=== PATIENT | female | born 1995 | race Caucasian/White ===

== ENCOUNTER 2017-02-22 17:23 | Inpatient (IN) | payer SELFPAY ==
[2017-02-22] MEDS ORDERED: NS 0.9% 1000 ML*IV.FLUID IV ONE (18:28)
[2017-02-22] MEDS ORDERED: diPHENhydraMINE IV* 50 MG/ML 1 ml VIAL (BENADRYL) IV ONE (18:28)
[2017-02-22 18:40] LABS: Hematocrit 27 % (35-47); Hemoglobin 8.4 g/dl (12.0-16.0); Mean Corpuscular HGB Conc 31 g/dl (31-36); Mean Corpuscular Hemoglobin 21 pg (27-31); Mean Corpuscular Volume 67 fL (80-97); Mean Platelet Volume 8 um3 (7.4-10.4); Red Cell Distribution Width 20 % (10.5-15); White Blood Count 16.5 10^3/ul (3.5-10.8)
[2017-02-22 18:41] LABS: Add Diff/Slide Review? Slide Review Added; Comments Flag Yes
[2017-02-22 18:52] LABS: ALT 7 U/L (7-52); AST 10 U/L (13-39); Albumin 3.6 g/dL (3.2-5.2); Alkaline Phosphatase 68 U/L (34-104); Anion Gap 7 mmol/L (2-11); BUN/Creatinine Ratio 20.3 (8-20); Blood Urea Nitrogen 15 mg/dL (6-24); C Reactive Protein 64.52 mg/L (< 5.00); CO2 Carbon Dioxide 27 mmol/L (22-32); Calcium 8.9 mg/dL (8.6-10.3); Chloride 102 mmol/L (101-111); Creatine Kinase 31 U/L (10-223); EGFR African American 125.1 (>60); EGFR Non-African American 97.3 (>60); Globulin 3.4 g/dL (2-4); Glucose 117 mg/dL (70-100); Potassium 3.7 mmol/L (3.5-5.0); Sodium 136 mmol/L (133-145)
[2017-02-22] MEDS ORDERED: Vancomycin(*) 1,000 MG VIAL IVPB SCH (19:00)
[2017-02-22] MEDS ORDERED: Vancomycin(*) 750 MG in NS 0.9% 250 ML* 250 ML IVPB ONE (19:00)
[2017-02-22 19:04] LABS: Add Path Review? YES; Hypochromasia 1+; Microcytosis 2+
[2017-02-22 19:30] LABS: Erythrocyte Sed Rate 53 mm/Hr (0-14)
--- NOTE | 2017-02-22 19:38 | RAD ---
INDICATION: Redness and erythema at right wrist ascending the right arm COMPARISON: None. TECHNIQUE: Single AP portable view of the chest was obtained. FINDINGS: Image quality is compromised due to the relative inferiority of a portable chest x-ray. The heart and mediastinum exhibit normal size and contour. The lungs are grossly clear. There is no evidence of a large pleural effusion. Visualized bones are normal for the patient's age. IMPRESSION: No radiographic evidence for acute cardiopulmonary abnormality on this portable chest x-ray.
--- NOTE | 2017-02-22 19:40 | RAD ---
INDICATION: Pain and soft tissue swelling at the right wrist COMPARISON: None TECHNIQUE: Real time ultrasound images of the right lateral wrist were acquired with boss scale and Doppler color flow imaging. FINDINGS: There is a complex anechoic subcutaneous fluid collection measuring 3.9 x 2.8 x 2.5 cm. There is overlying edema of the subcutaneous fat. IMPRESSION: Sonographic findings are consistent with subcutaneous abscess in the correct clinical setting.
[2017-02-22] MEDS ORDERED: NS 0.9% 1000 ML* 1,000 ML IV ONE (20:16)
[2017-02-22] MEDS ORDERED: oxyCODONE/Acetamin 5/325 MG* TAB PO ONE (20:17)
[2017-02-22 23:15] LABS: Urine Bacteria 3+ (Absent); Urine Bilirubin Negative (Negative); Urine Glucose Negative (Negative); Urine Nitrite Negative (Negative)
[2017-02-22 23:24] LABS: Benzodiazepine Urine Screen None Detected (None Detect)
[2017-02-22] MEDS ORDERED: Albuterol 2.5 MG/3 ML NEB.SOL* (0.083%) INH PRN (23:40)
[2017-02-22] MEDS ORDERED: Ondansetron INJ* 2 MG/ML VIAL IV PRN (23:41)
[2017-02-22] MEDS ORDERED: Morphine INJ* 4 MG/ML 1 ML SYRINGE IV ONE (23:44)
[2017-02-22] MEDS ORDERED: Vancomycin per Pharmacy* NOTE FOLLOW UP SCH (23:45)
[2017-02-22] MEDS ORDERED: Ondansetron INJ* 2 MG/ML VIAL IV ONE (23:48)
--- NOTE | 2017-02-22 23:52 | HP ---
H&P (Free Text) History and Physical: PCP: MELANY Sunshine Date/Time of Evaluation: 02/22/2017 2300 CC: R forearm infection HPI: Ms Astudillo is a 21YO female HX heroin abuse adamantly denying current use presenting reporting being bitten by a spider at 0300 02/21/2017 and in the interval experiencing the formation of a large painful red lump at the site with erythema streaking up the arm to the shoulder. She reports F/C & nausea. She spends the majority of the time diverting the conversation to other complains such as her belief that she had a severe kidney infection a year ago, but was "told she was delusional" by the ED and now thinks she has permanent kidney damage. She is lying on the ED gurney in no objective distress. PMedHx anxiety PTSD neurocardiac syncope IV drug abuse Ambulatory Orders Adderall 1 tab PO DAILY 05/17/13 Implanon 1 dose SUBCUT SEE INSTRUCTIONS 05/17/13 Allergies Coconut Fatty Acids Allergy (Severe, Verified 02/22/17 17:53) Anaphylatic Shock pt reports last time ate coconut, had anaphylactic reaction Azithromycin Allergy (Intermediate, Verified 02/22/17 23:37) Hives/Diff.Breathing/Itching Ciprofloxacin Allergy (Intermediate, Verified 02/22/17 23:37) Hives/Diff.Breathing/Itching Penicillins [PCN] Allergy (Intermediate, Verified 02/22/17 23:37) Hives/Diff.Breathing/Itching Adhesive Tape Allergy (Mild, Verified 02/22/17 23:37) Rash Cephalexin [From Keflex] Allergy (Mild, Verified 02/22/17 23:37) Hives Lactose Allergy (Mild, Verified 02/22/17 23:37) Hives and gi distress Ketorolac Tromethamine [From Toradol] Adverse Reaction (Mild, Verified 02/22/17 23:37) Itching PSurgHx L knee arthroscopy appendectomy D&C SocHx: <1/4PPD attempting cessation, no alcohol, former IV drug abuser claims abstinence x >1year; lives with her uncle; unemployed; full code status FamHx: Mother: drug abuse; Father: estranged; otherwise positive for colon CA, pancreatic CA, & brain CA ROS: as above, otherwise reviewed and all were negative Constitutional: NAD, normally developed, thin white female vitals: Vital Signs Temp 37.8 C 02/22/17 17:28 Pulse 119 02/22/17 22:00 Resp 18 02/22/17 22:43 BP 119/97 02/22/17 22:00 Pulse Ox 100 02/22/17 22:00 Intake & Output 02/22/17 02/22/17 02/23/17 11:59 23:59 11:59 Intake Total 1999 Balance 1999 Weight 44.452 kg Intake: IV Fluids 1999 HEENM: atraumatic; sclera/conjunctiva: non-icteric/clear; hearing: clinically intact; oropharynx: clear, mucosa moist Neck: soft tissue: non-tender; thyroid: normal Pulmonary: clear to auscultation bilaterally, good aeration, no accessory muscle use CV: RR/RR, normal S1S2, no carotid bruit, no jugular venous distention, 2+ B DP/ PT, no edema Abdominal: soft, non-distended, non-tender, no rebound/guarding/rigidity, normoactive bowel sounds, no hepatosplenomegaly or masses, no costovertebral angle tenderness Musculoskeletal: general: grossly intact; gait: stable Integumental: R lateral wrist with ~4cm firm tender flocculent nodule with erythema, warmth, and induration; It is highly unlikely this area has formed in <24 hours as she claims. There is erythema extending to the shoulder. Otherwise there appears to be multiple track grace on BLE. Psychiatric orientation: AA&O to PPS affect: calm mood: cooperative eye contact: fair content: unreliable, possibly delusional responses: timely insight: poor Testing: Lab Results 02/22/17 02/22/17 02/22/17 Range/Units 18:22 18:22 18:22 WBC 16.5 H (3.5-10.8) 10^3/ul RBC 4.00 (4.0-5.4) 10^6/ul Hgb 8.4 L (12.0-16.0) g/dl Hct 27 L (35-47) % MCV 67 L (80-97) fL MCH 21 L (27-31) pg MCHC 31 (31-36) g/dl RDW 20 H (10.5-15) % Plt Count 413 (150-450) 10^3/ul MPV 8 (7.4-10.4) um3 Neut % (Auto) 79.9 (38-83) % Lymph % (Auto) 10.1 L (25-47) % [place] % (Auto) 4.7 (1-9) % Eos % (Auto) 4.6 (0-6) % Baso % (Auto) 0.7 (0-2) % Absolute Neuts (auto) 13.2 H (1.5-7.7) 10^3/ul Absolute Lymphs (auto) 1.7 (1.0-4.8) 10^3/ul Absolute Monos (auto) 0.8 (0-0.8) 10^3/ul Absolute Eos (auto) 0.8 H (0-0.6) 10^3/ul Absolute Basos (auto) 0.1 (0-0.2) 10^3/ul Absolute Nucleated RBC 0 10^3/ul Nucleated RBC % 0 Normal RBC Morphology Not Reportable Hypochromasia 1+ Microcytosis 2+ ESR 53 H (0-14) mm/Hr Hem Pathologist Commnt Pending INR (Anticoag Therapy) 1.05 (0.89-1.11) APTT 31.4 (26.0-36.3) seconds Sodium 136 (133-145) mmol/L Potassium 3.7 (3.5-5.0) mmol/L Chloride 102 (101-111) mmol/L Carbon Dioxide 27 (22-32) mmol/L Anion Gap 7 (2-11) mmol/L BUN 15 (6-24) mg/dL Creatinine 0.74 (0.51-0.95) mg/dL Est GFR ( Amer) 125.1 (>60) Est GFR (Non-Af Amer) 97.3 (>60) BUN/Creatinine Ratio 20.3 H (8-20) Glucose 117 H (70-100) mg/dL Lactic Acid (0.5-2.0) mmol/L Calcium 8.9 (8.6-10.3) mg/dL Total Bilirubin 0.30 (0.2-1.0) mg/dL AST 10 L (13-39) U/L ALT 7 (7-52) U/L Alkaline Phosphatase 68 (34-104) U/L Total Creatine Kinase 31 (10-223) U/L Troponin I 0.00 (<0.04) ng/mL C-Reactive Protein 64.52 H (< 5.00) mg/L Total Protein 7.0 (6.4-8.9) g/dL Albumin 3.6 (3.2-5.2) g/dL Globulin 3.4 (2-4) g/dL Albumin/Globulin Ratio 1.1 (1-3) Beta HCG, Quant < 0.60 mIU/mL Urine Color Urine Appearance Urine pH (5-9) Ur Specific [place] (1.010-1.030) Urine Protein (Negative) Urine Ketones (Negative) Urine Blood (Negative) Urine Nitrate (Negative) Urine Bilirubin (Negative) Urine Urobilinogen (Negative) Ur Leukocyte Esterase (Negative) Urine WBC (Auto) (Absent) Urine RBC (Auto) (Absent) Ur Squamous Epith Cells (Absent) Urine Bacteria (Absent) Urine Glucose (Negative) Urine Opiates Screen (None Detect) Ur Barbiturates Screen (None Detect) Ur Phencyclidine Scrn (None Detect) Ur Amphetamines Screen (None Detect) U Benzodiazepines Scrn (None Detect) Urine Cocaine Screen (None Detect) U Cannabinoids Screen (None Detect) 02/22/17 02/22/17 02/22/17 Range/Units 18:22 22:40 22:40 WBC (3.5-10.8) 10^3/ul RBC (4.0-5.4) 10^6/ul Hgb (12.0-16.0) g/dl Hct (35-47) % MCV (80-97) fL MCH (27-31) pg MCHC (31-36) g/dl RDW (10.5-15) % Plt Count (150-450) 10^3/ul MPV (7.4-10.4) um3 Neut % (Auto) (38-83) % Lymph % (Auto) (25-47) % [place] % (Auto) (1-9) % Eos % (Auto) (0-6) % Baso % (Auto) (0-2) % Absolute Neuts (auto) (1.5-7.7) 10^3/ul Absolute Lymphs (auto) (1.0-4.8) 10^3/ul Absolute Monos (auto) (0-0.8) 10^3/ul Absolute Eos (auto) (0-0.6) 10^3/ul Absolute Basos (auto) (0-0.2) 10^3/ul Absolute Nucleated RBC 10^3/ul Nucleated RBC % Normal RBC Morphology Hypochromasia Microcytosis ESR (0-14) mm/Hr Hem Pathologist Commnt INR (Anticoag Therapy) (0.89-1.11) APTT (26.0-36.3) seconds Sodium (133-145) mmol/L Potassium (3.5-5.0) mmol/L Chloride (101-111) mmol/L Carbon Dioxide (22-32) mmol/L Anion Gap (2-11) mmol/L BUN (6-24) mg/dL Creatinine (0.51-0.95) mg/dL Est GFR ( Amer) (>60) Est GFR (Non-Af Amer) (>60) BUN/Creatinine Ratio (8-20) Glucose (70-100) mg/dL Lactic Acid 1.5 (0.5-2.0) mmol/L Calcium (8.6-10.3) mg/dL Total Bilirubin (0.2-1.0) mg/dL AST (13-39) U/L ALT (7-52) U/L Alkaline Phosphatase (34-104) U/L Total Creatine Kinase (10-223) U/L Troponin I (<0.04) ng/mL C-Reactive Protein (< 5.00) mg/L Total Protein (6.4-8.9) g/dL Albumin (3.2-5.2) g/dL Globulin (2-4) g/dL Albumin/Globulin Ratio (1-3) Beta HCG, Quant mIU/mL Urine Color [place] Urine Appearance Turbid Urine pH 6.0 (5-9) Ur Specific [place] 1.015 (1.010-1.030) Urine Protein 1+(30 mg/dl) H (Negative) Urine Ketones Negative (Negative) Urine Blood 1+ H (Negative) Urine Nitrate Negative (Negative) Urine Bilirubin Negative (Negative) Urine Urobilinogen Negative (Negative) Ur Leukocyte Esterase 2+ H (Negative) Urine WBC (Auto) 3+(>20/hpf) H (Absent) Urine RBC (Auto) Absent (Absent) Ur Squamous Epith Cells Present H (Absent) Urine Bacteria 3+ H (Absent) Urine Glucose Negative (Negative) Urine Opiates Screen Presumptive positive H (None Detect) Ur Barbiturates Screen None detected (None Detect) Ur Phencyclidine Scrn None detected (None Detect) Ur Amphetamines Screen Presumptive positive H (None Detect) U Benzodiazepines Scrn None detected (None Detect) Urine Cocaine Screen None detected (None Detect) U Cannabinoids Screen None detected (None Detect) 02/22/17 Range/Units 23:00 WBC (3.5-10.8) 10^3/ul RBC (4.0-5.4) 10^6/ul Hgb (12.0-16.0) g/dl Hct (35-47) % MCV (80-97) fL MCH (27-31) pg MCHC (31-36) g/dl RDW (10.5-15) % Plt Count (150-450) 10^3/ul MPV (7.4-10.4) um3 Neut % (Auto) (38-83) % Lymph % (Auto) (25-47) % [place] % (Auto) (1-9) % Eos % (Auto) (0-6) % Baso % (Auto) (0-2) % Absolute Neuts (auto) (1.5-7.7) 10^3/ul Absolute Lymphs (auto) (1.0-4.8) 10^3/ul Absolute Monos (auto) (0-0.8) 10^3/ul Absolute Eos (auto) (0-0.6) 10^3/ul Absolute Basos (auto) (0-0.2) 10^3/ul Absolute Nucleated RBC 10^3/ul Nucleated RBC % Normal RBC Morphology Hypochromasia Microcytosis ESR (0-14) mm/Hr Hem Pathologist Commnt INR (Anticoag Therapy) (0.89-1.11) APTT (26.0-36.3) seconds Sodium (133-145) mmol/L Potassium (3.5-5.0) mmol/L Chloride (101-111) mmol/L Carbon Dioxide (22-32) mmol/L Anion Gap (2-11) mmol/L BUN (6-24) mg/dL Creatinine (0.51-0.95) mg/dL Est GFR ( Amer) (>60) Est GFR (Non-Af Amer) (>60) BUN/Creatinine Ratio (8-20) Glucose (70-100) mg/dL Lactic Acid 1.1 (0.5-2.0) mmol/L Calcium (8.6-10.3) mg/dL Total Bilirubin (0.2-1.0) mg/dL AST (13-39) U/L ALT (7-52) U/L Alkaline Phosphatase (34-104) U/L Total Creatine Kinase (10-223) U/L Troponin I (<0.04) ng/mL C-Reactive Protein (< 5.00) mg/L Total Protein (6.4-8.9) g/dL Albumin (3.2-5.2) g/dL Globulin (2-4) g/dL Albumin/Globulin Ratio (1-3) Beta HCG, Quant mIU/mL Urine Color Urine Appearance Urine pH (5-9) Ur Specific [place] (1.010-1.030) Urine Protein (Negative) Urine Ketones (Negative) Urine Blood (Negative) Urine Nitrate (Negative) Urine Bilirubin (Negative) Urine Urobilinogen (Negative) Ur Leukocyte Esterase (Negative) Urine WBC (Auto) (Absent) Urine RBC (Auto) (Absent) Ur Squamous Epith Cells (Absent) Urine Bacteria (Absent) Urine Glucose (Negative) Urine Opiates Screen (None Detect) Ur Barbiturates Screen (None Detect) Ur Phencyclidine Scrn (None Detect) Ur Amphetamines Screen (None Detect) U Benzodiazepines Scrn (None Detect) Urine Cocaine Screen (None Detect) U Cannabinoids Screen (None Detect) ECG, personally reviewed: sinus tachycardia rate 100, no ischemia CXR, personally reviewed: IMPRESSION: No radiographic evidence for acute cardiopulmonary abnormality on this portable chest x-ray. US soft tissue R wrist: IMPRESSION: Sonographic findings are consistent with subcutaneous abscess in the correct clinical setting. Impression: 21F presenting abscess of RUE highly suspicious for IV drug use DIAGNOSIS & PLAN Primary R wrist abscess/cellulitis : IV vancomycin : IVFs : blood CX : non-narcotic pain control, patient aware and agrees : supportive care : consider ID consult in AM Secondary anxiety : review meds once reconciled PTSD : review meds once reconciled Admission Rational: CDU observation for syncope DVTp: KINDRA Code Status: full
[2017-02-23] MEDS ORDERED: Bupivacaine 0.5%* 50 ML VIAL INJ ONE (00:20)
[2017-02-23] MEDS ORDERED: Mouth Piece, Nicotine* 1 EACH CARTRIDGE INH PRN (00:34)
[2017-02-23] MEDS ORDERED: Nicotine Inhaler* 10 MG AMP INH PRN (00:34)
[2017-02-23] MEDS ORDERED: diPHENhydraMINE IV* 50 MG/ML 1 ml VIAL (BENADRYL) ONE (01:24)
[2017-02-23] MEDS ORDERED: diPHENhydraMINE IV* 50 MG/ML 1 ml VIAL (BENADRYL) SLOW PUSH ONE (01:26)
[2017-02-23] MEDS: Acetaminophen TAB* 325 MG PO PRN ×3 (03:13→19:41)
[2017-02-23] MEDS: Vancomycin(*) 750 MG in NS 0.9% 250 ML* 250 ML IVPB SCH ×3 (03:23→19:42)
--- NOTE | 2017-02-23 04:23 | ED ---
Edwin Enrique Thomas, scribed for Bethany Romo MD on 02/22/17 at 1822 . Skin Complaint <Gilma Araujo - Last Filed: 02/23/17 02:10> - HPI Summary HPI Summary: The pt is a 21 y/o F presenting to the ED c/o an erythematous swelling to her right wrist that she first noticed 24 hours ago although the swelling has worsened significantly in the last 6 hours. The patient claims that this is a spider bite. She has a Hx of IV drug use, although she claims that the last time she used IV drugs was a year ago. The pain associated with this swelling radiates up her right arm. The pt rates the pain 10/10. The patient has treated the swelling with Benadryl and Lidocaine LINK CUTTER (per EMR). She does not have a Hx of MRSA. Pt additionally c/o a rash on her back and a chronic VELÁZQUEZ. Her temperature in the ED is 100.0. Pt denies CP, SOB, and N/V/D. She takes Adderall 15mg TID. She reports that she is on Percocet PRN. She denies any other medication use. Her last meal was a piece of pizza at 15:15. 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 PSHx: appendectomy. SHx: smoking, no alcohol use , and IV benzos (she reports her last use is a year ago). FHx: kidney disease. She has as child who was born in the last couple years and, per patient, she was unaware of the for the entire . Patients medication reviewed this visit. Her PCP is Dr. Slade. She is accompanied by her fiance and a friend. - History of Current Complaint Hx Obtained From: Patient, Family/Texture Artist - fiance and friend are present Hx Last Menstrual Period: 11/15/12 Onset/Duration: Started Hours Ago - onset 24 hours ago, Still Present, Worse Since - last 6 hours Timing: Constant Current Severity: Severe Pain Intensity: 10 Pain Scale Used: 0-10 Numeric Skin Location: Other: - Left wrist Character: Swelling, Pain, Redness Aggravating Symptom(s): Nothing Alleviating Symptom(s): Nothing Associated Signs & Symptoms: Fever, Rash - on back Related History: Other: - Hx of IV drug use <Bethany Romo - Last Filed: 02/23/17 04:24> - History of Current Complaint Chief Complaint: EDGeneral Stated Complaint: SPIDER BITE - Allergy/Home Medications Allergies/Adverse Reactions: Allergies Allergy/AdvReac Type Severity Reaction Status Date / Time C[place] Fatty Acids Allergy Severe Anaphylatic Verified 02/22/17 17:53 Shock Azithromycin Allergy Intermediate Hives/Diff. Verified 02/22/17 23:37 Breathing/I tching Ciprofloxacin Allergy Intermediate Hives/Diff. Verified 02/22/17 23:37 Breathing/I tching Penicillins [PCN] Allergy Intermediate Hives/Diff. Verified 02/22/17 23:37 Breathing/I tching Adhesive Tape Allergy Mild Rash Verified 02/22/17 23:37 Cephalexin [From Keflex] Allergy Mild Hives Verified 02/22/17 23:37 Lactose Allergy Mild Hives Verified 02/22/17 23:37 Ketorolac Tromethamine AdvReac Mild Itching Verified 02/22/17 23:37 [From Toradol] Home Medications: Home Medications oxyCODONE/Acetamin 10/325(NF) [Percocet 10/325 (NF)] 10 mg PO Q6HR PRN 02/23/17 [History Confirmed 02/23/17] PMH/Surg Hx/FS Hx/Imm Hx Previously Healthy: No Endocrine/Hematology History: Denies: Hx Bone Marrow Disease, Hx Diabetes, Hx Sickle Cell Disease, Hx Anemia Cardiovascular History: Reports: Other Cardiovascular Problems/Disorders - "Hyponeurogenic cardiac syncope" congenital Denies: Hx Congestive Heart Failure, Hx Hypertension, Hx Pacemaker/ICD Sensory History: Denies: Hx Contacts or Glasses, Hx Hearing Aid Opthamlomology History: Denies: Hx Contacts or Glasses Neurological History: Reports: Other Neuro Impairments/Disorders - PTSD Denies: Hx Headaches, Hx Migraine, Hx Nerve Disease, Hx Seizures Psychiatric History: Reports: Hx Anxiety - X 5 years, Hx Post Traumatic Stress Disorder - X 5 years Denies: Hx Depression, Hx Panic Disorder - Surgical History Surgery Procedure, Year, and Place: left knee surg. appendectomy Hx Anesthesia Reactions: No - Immunization History Date of Tetanus Vaccine: UTD Date of Influenza Vaccine: 2012 Infectious Disease History: No Infectious Disease History: Denies: Traveled Outside the [place] in Last 30 Days - Family History Known Family History: Positive: Other - POS: kidney disease - Social History Alcohol Use: None Hx Substance Use: Yes Substance Use Comment - Amount & Last Used: Patient declines to answer Smoking Status (MU): Current Some Day Smoker <Bethany Romo - Last Filed: 02/23/17 04:24> Review of Systems Positive: Fever - temperature 100 in the ED Negative: Chest Pain Negative: Shortness Of Breath Negative: Vomiting, Diarrhea, Nausea Positive: Rash - on her back, Other - POS: R wrist pain, swelling and erythema to right wrist Positive: Headache - chronic All Other Systems Reviewed And Are Negative: Yes <Bethany Romo Stella - Last Filed: 02/23/17 04:24> Physical Exam Vital Signs On Initial Exam: Initial Vitals Temp Pulse Resp BP Pulse Ox 100.0 F 125 18 121/83 96 02/22/17 17:28 02/22/17 17:28 02/22/17 17:28 02/22/17 17:28 02/22/17 17:28 <Gilma Araujo - Last Filed: 02/23/17 02:10> Triage Information Reviewed: Yes Vital Signs On Initial Exam: Initial Vitals Temp Pulse Resp BP Pulse Ox 100.0 F 125 18 121/83 96 02/22/17 17:28 02/22/17 17:28 02/22/17 17:28 02/22/17 17:28 02/22/17 17:28 Vital Signs Reviewed: Yes Appearance: Positive: Well-Appearing, Well-Nourished, Pain Distress Skin: Positive: Warm, Skin Color Reflects Adequate Perfusion, Other - There are multiple erythematous lesoins that are scabbed and crusted in the scalp, face, and extremities. There is a 6cm x 6cm shiny red induration over the radial artery. Surrounding redness is 16cm. There is diffuse hives and erythema. Head/Face: Positive: Normal Head/Face Inspection Eyes: Positive: Conjunctiva Clear ENT: Positive: Normal ENT inspection, Pharynx normal Neck: Positive: Supple Respiratory/Lung Sounds: Positive: Clear to Auscultation, Breath Sounds Present , Other - No respiratory distress Cardiovascular: Positive: Pulses are Symmetrical in both Upper and Lower Extremities, Other - Brisk cap refill. She is tachycardic. Regular rhythm.. Negative: Murmur Abdomen Description: Positive: Nontender, Soft Bowel Sounds: Positive: Present Musculoskeletal: Positive: Strength/ROM Intact Neurological: Positive: Sensory/Motor Intact, Alert, Oriented to Person Place, Time, Facial Symmetry, Speech Normal Psychiatric: Positive: Normal - Trevin Coma Scale Coma Scale Total: 15 <Bethany Romo - Last Filed: 02/23/17 04:24> Procedures - Incision and Drainage Site: Rt distal dorsal wrist - cleaned w/ betadine Anesthesia: Local - marcaine 0.5% Instrument(s): Scalpel - #11 - 5+ cc purulent sanginous d/c, tiny clots present - not thoroughly evacuated d/t pt's intolerance Packing: Gauze - cavity flushed with sterile saline and packed with 1/2" sterile gauze - performed by Gilma Araujo PA-C <Gilma Araujo - Last Filed: 02/23/17 02:10> Diagnostics - Vital Signs Vital Signs Temp Pulse Resp BP Pulse Ox 02/22/17 22:43 18 02/22/17 22:00 119 119/97 100 02/22/17 21:30 115 113/74 100 02/22/17 21:00 117 125/85 100 02/22/17 20:30 114 114/74 100 02/22/17 20:00 109 112/70 100 02/22/17 19:30 103 117/77 99 02/22/17 19:00 109 118/78 100 02/22/17 18:30 121 115/83 100 02/22/17 18:28 98 02/22/17 18:00 117 121/81 100 02/22/17 17:54 114 16 109/80 02/22/17 17:53 118 100 02/22/17 17:51 109/80 02/22/17 17:28 100.0 F 125 18 121/83 96 - Laboratory Lab Results: Lab Results 02/22/17 02/22/17 02/22/17 Range/Units 18:22 18:22 18:22 WBC 16.5 H (3.5-10.8) 10^3/ul RBC 4.00 (4.0-5.4) 10^6/ul Hgb 8.4 L (12.0-16.0) g/dl Hct 27 L (35-47) % MCV 67 L (80-97) fL MCH 21 L (27-31) pg MCHC 31 (31-36) g/dl RDW 20 H (10.5-15) % Plt Count 413 (150-450) 10^3/ul MPV 8 (7.4-10.4) um3 Neut % (Auto) 79.9 (38-83) % Lymph % (Auto) 10.1 L (25-47) % Chase % (Auto) 4.7 (1-9) % Eos % (Auto) 4.6 (0-6) % Baso % (Auto) 0.7 (0-2) % Absolute Neuts (auto) 13.2 H (1.5-7.7) 10^3/ul Absolute Lymphs (auto) 1.7 (1.0-4.8) 10^3/ul Absolute Monos (auto) 0.8 (0-0.8) 10^3/ul Absolute Eos (auto) 0.8 H (0-0.6) 10^3/ul Absolute Basos (auto) 0.1 (0-0.2) 10^3/ul Absolute Nucleated RBC 0 10^3/ul Nucleated RBC % 0 Normal RBC Morphology Not Reportable Hypochromasia 1+ Microcytosis 2+ ESR 53 H (0-14) mm/Hr Hem Pathologist Commnt Pending INR (Anticoag Therapy) 1.05 (0.89-1.11) APTT 31.4 (26.0-36.3) seconds Sodium 136 (133-145) mmol/L Potassium 3.7 (3.5-5.0) mmol/L Chloride 102 (101-111) mmol/L Carbon Dioxide 27 (22-32) mmol/L Anion Gap 7 (2-11) mmol/L BUN 15 (6-24) mg/dL Creatinine 0.74 (0.51-0.95) mg/dL Est GFR ( Amer) 125.1 (>60) Est GFR (Non-Af Amer) 97.3 (>60) BUN/Creatinine Ratio 20.3 H (8-20) Glucose 117 H (70-100) mg/dL Lactic Acid (0.5-2.0) mmol/L Calcium 8.9 (8.6-10.3) mg/dL Total Bilirubin 0.30 (0.2-1.0) mg/dL AST 10 L (13-39) U/L ALT 7 (7-52) U/L Alkaline Phosphatase 68 (34-104) U/L Total Creatine Kinase 31 (10-223) U/L Troponin I 0.00 (<0.04) ng/mL C-Reactive Protein 64.52 H (< 5.00) mg/L Total Protein 7.0 (6.4-8.9) g/dL Albumin 3.6 (3.2-5.2) g/dL Globulin 3.4 (2-4) g/dL Albumin/Globulin Ratio 1.1 (1-3) Beta HCG, Quant < 0.60 mIU/mL Urine Color Urine Appearance Urine pH (5-9) Ur Specific [place] (1.010-1.030) Urine Protein (Negative) Urine Ketones (Negative) Urine Blood (Negative) Urine Nitrate (Negative) Urine Bilirubin (Negative) Urine Urobilinogen (Negative) Ur Leukocyte Esterase (Negative) Urine WBC (Auto) (Absent) Urine RBC (Auto) (Absent) Ur Squamous Epith Cells (Absent) Urine Bacteria (Absent) Urine Glucose (Negative) Urine Opiates Screen (None Detect) Ur Barbiturates Screen (None Detect) Ur Phencyclidine Scrn (None Detect) Ur Amphetamines Screen (None Detect) U Benzodiazepines Scrn (None Detect) Urine Cocaine Screen (None Detect) U Cannabinoids Screen (None Detect) 02/22/17 02/22/17 02/22/17 Range/Units 18:22 22:40 22:40 WBC (3.5-10.8) 10^3/ul RBC (4.0-5.4) 10^6/ul Hgb (12.0-16.0) g/dl Hct (35-47) % MCV (80-97) fL MCH (27-31) pg MCHC (31-36) g/dl RDW (10.5-15) % Plt Count (150-450) 10^3/ul MPV (7.4-10.4) um3 Neut % (Auto) (38-83) % Lymph % (Auto) (25-47) % Chase % (Auto) (1-9) % Eos % (Auto) (0-6) % Baso % (Auto) (0-2) % Absolute Neuts (auto) (1.5-7.7) 10^3/ul Absolute Lymphs (auto) (1.0-4.8) 10^3/ul Absolute Monos (auto) (0-0.8) 10^3/ul Absolute Eos (auto) (0-0.6) 10^3/ul Absolute Basos (auto) (0-0.2) 10^3/ul Absolute Nucleated RBC 10^3/ul Nucleated RBC % Normal RBC Morphology Hypochromasia Microcytosis ESR (0-14) mm/Hr Hem Pathologist Commnt INR (Anticoag Therapy) (0.89-1.11) APTT (26.0-36.3) seconds Sodium (133-145) mmol/L Potassium (3.5-5.0) mmol/L Chloride (101-111) mmol/L Carbon Dioxide (22-32) mmol/L Anion Gap (2-11) mmol/L BUN (6-24) mg/dL Creatinine (0.51-0.95) mg/dL Est GFR ( Amer) (>60) Est GFR (Non-Af Amer) (>60) BUN/Creatinine Ratio (8-20) Glucose (70-100) mg/dL Lactic Acid 1.5 (0.5-2.0) mmol/L Calcium (8.6-10.3) mg/dL Total Bilirubin (0.2-1.0) mg/dL AST (13-39) U/L ALT (7-52) U/L Alkaline Phosphatase (34-104) U/L Total Creatine Kinase (10-223) U/L Troponin I (<0.04) ng/mL C-Reactive Protein (< 5.00) mg/L Total Protein (6.4-8.9) g/dL Albumin (3.2-5.2) g/dL Globulin (2-4) g/dL Albumin/Globulin Ratio (1-3) Beta HCG, Quant mIU/mL Urine Color [place] Urine Appearance Turbid Urine pH 6.0 (5-9) Ur Specific [place] 1.015 (1.010-1.030) Urine Protein 1+(30 mg/dl) H (Negative) Urine Ketones Negative (Negative) Urine Blood 1+ H (Negative) Urine Nitrate Negative (Negative) Urine Bilirubin Negative (Negative) Urine Urobilinogen Negative (Negative) Ur Leukocyte Esterase 2+ H (Negative) Urine WBC (Auto) 3+(>20/hpf) H (Absent) Urine RBC (Auto) Absent (Absent) Ur Squamous Epith Cells Present H (Absent) Urine Bacteria 3+ H (Absent) Urine Glucose Negative (Negative) Urine Opiates Screen Presumptive positive H (None Detect) Ur Barbiturates Screen None detected (None Detect) Ur Phencyclidine Scrn None detected (None Detect) Ur Amphetamines Screen Presumptive positive H (None Detect) U Benzodiazepines Scrn None detected (None Detect) Urine Cocaine Screen None detected (None Detect) U Cannabinoids Screen None detected (None Detect) 02/22/17 Range/Units 23:00 WBC (3.5-10.8) 10^3/ul RBC (4.0-5.4) 10^6/ul Hgb (12.0-16.0) g/dl Hct (35-47) % MCV (80-97) fL MCH (27-31) pg MCHC (31-36) g/dl RDW (10.5-15) % Plt Count (150-450) 10^3/ul MPV (7.4-10.4) um3 Neut % (Auto) (38-83) % Lymph % (Auto) (25-47) % Chase % (Auto) (1-9) % Eos % (Auto) (0-6) % Baso % (Auto) (0-2) % Absolute Neuts (auto) (1.5-7.7) 10^3/ul Absolute Lymphs (auto) (1.0-4.8) 10^3/ul Absolute Monos (auto) (0-0.8) 10^3/ul Absolute Eos (auto) (0-0.6) 10^3/ul Absolute Basos (auto) (0-0.2) 10^3/ul Absolute Nucleated RBC 10^3/ul Nucleated RBC % Normal RBC Morphology Hypochromasia Microcytosis ESR (0-14) mm/Hr Hem Pathologist Commnt INR (Anticoag Therapy) (0.89-1.11) APTT (26.0-36.3) seconds Sodium (133-145) mmol/L Potassium (3.5-5.0) mmol/L Chloride (101-111) mmol/L Carbon Dioxide (22-32) mmol/L Anion Gap (2-11) mmol/L BUN (6-24) mg/dL Creatinine (0.51-0.95) mg/dL Est GFR ( Amer) (>60) Est GFR (Non-Af Amer) (>60) BUN/Creatinine Ratio (8-20) Glucose (70-100) mg/dL Lactic Acid 1.1 (0.5-2.0) mmol/L Calcium (8.6-10.3) mg/dL Total Bilirubin (0.2-1.0) mg/dL AST (13-39) U/L ALT (7-52) U/L Alkaline Phosphatase (34-104) U/L Total Creatine Kinase (10-223) U/L Troponin I (<0.04) ng/mL C-Reactive Protein (< 5.00) mg/L Total Protein (6.4-8.9) g/dL Albumin (3.2-5.2) g/dL Globulin (2-4) g/dL Albumin/Globulin Ratio (1-3) Beta HCG, Quant mIU/mL Urine Color Urine Appearance Urine pH (5-9) Ur Specific [place] (1.010-1.030) Urine Protein (Negative) Urine Ketones (Negative) Urine Blood (Negative) Urine Nitrate (Negative) Urine Bilirubin (Negative) Urine Urobilinogen (Negative) Ur Leukocyte Esterase (Negative) Urine WBC (Auto) (Absent) Urine RBC (Auto) (Absent) Ur Squamous Epith Cells (Absent) Urine Bacteria (Absent) Urine Glucose (Negative) Urine Opiates Screen (None Detect) Ur Barbiturates Screen (None Detect) Ur Phencyclidine Scrn (None Detect) Ur Amphetamines Screen (None Detect) U Benzodiazepines Scrn (None Detect) Urine Cocaine Screen (None Detect) U Cannabinoids Screen (None Detect) Result Diagrams: 02/22/17 18:22 02/22/17 18:22 Lab Statement: Any lab studies that have been ordered have been reviewed, and results considered in the medical decision making process. <Gilma Araujo - Last Filed: 02/23/17 02:10> - Vital Signs Vital Signs Temp Pulse Resp BP Pulse Ox 02/22/17 17:54 114 16 109/80 02/22/17 17:53 118 100 02/22/17 17:51 109/80 02/22/17 17:28 100.0 F 125 18 121/83 96 - Laboratory Result Diagrams: 02/22/17 18:22 02/22/17 18:22 Lab Statement: Any lab studies that have been ordered have been reviewed, and results considered in the medical decision making process. - Radiology CXR Xray Interpretation: No Acute Changes - CXR No radiographic evidence for acute cardiopulmonary abnormality on this portable chest x-ray. ED Physician has read this report and agrees. Radiology Interpretation Completed By: Radiologist - EKG 19:20 Cardiac Rate: NL - Sinus tachycardia at 100 BPM. Prolonged IV conduction time ( unspecific 124) Nml AV/IV/QTc/[place]. - Additional Comments Diagnostic Additional Comments: US Soft Tissue. Interpreted by radiologist. Impression: sonographic findings are consistent with subcutaneous abscess in the correct clinical setting. ED Physician has read this report and agrees. <Bethany Romo - Last Filed: 02/23/17 04:24> Re-Evaluation - Re-Evaluation First Eval Re-Evaluation Time: 20:00 Change: Improved Comment: The rash has improved. The patient is still tachycardic, so we will give her more IV fluids. <Bethany Romo - Last Filed: 02/23/17 04:24> Course/Dx - Course Assessment/Plan: The pt is a 21 y/o F presenting to the ED c/o an erythematous swelling to her right wrist that she first noticed She has a Hx of IV drug use, although she claims that the last time she used IV drugs was a year ago. In the ED course the patient was given IV fluids, morphine, Zofran, vancomycin, Percocet, and Benadryl. Bloodwork shows WBC 16.5, Hgb 8.4, Hct 27, AST 10, and CRP 64.52. UA shows 1+ protein, 1+ blood, 2+ leukocyte esterase, 3+ WBC, 2+ bacteria. Urine toxicology is presumptive positive for opiates and amphetamines. CXR is negative. EKG shows ST with prolonged IV conduction time. US Soft tissue abscess that (per Dr. Wiggins) would warrant surgery consult. However, I consulted with Dr. Seaman, surgery, who recommended that an I&D be done in the ED. I also consulted at 23:[address] Walsh, button broacher, who admits the patient to [facility]. - Physician Notifications Discussed Care Of Patient With: Sarkis Wiggins Time Discussed With Above Provider: 19:50 Instructed by Provider To: Other - I personally consultd with Dr. Wiggins, radiology. He reports that the patient's abscess will require a surgical consult. I also consulted with Dr. Walsh, button broacher, who admits the patient to [facility] at 23:30. <Bethany Romo - Last Filed: 02/23/17 04:24> Discharge <Gilma Araujo - Last Filed: 02/23/17 02:10> - Discharge Plan Discharge Disposition Comment: By Dr. Walsh at 23:30 <Bethany Romo - Last Filed: 02/23/17 04:24> - Discharge Plan Condition: Fair Disposition: ADMITTED TO [facility] The documentation as recorded by the Edwin kohler Thomas accurately reflects the service I personally performed and the decisions made by me, Bethany Romo MD.
[2017-02-23] MEDS: Omeprazole CAP* 20 MG PO SCH (05:06)
[2017-02-23 05:59] LABS: Hematocrit 24 % (35-47); Hemoglobin 7.4 g/dl (12.0-16.0); Mean Corpuscular HGB Conc 32 g/dl (31-36); Mean Corpuscular Hemoglobin 22 pg (27-31); Mean Corpuscular Volume 68 fL (80-97); Mean Platelet Volume 8 um3 (7.4-10.4); Red Blood Count 3.44 10^6/ul (4.0-5.4); Red Cell Distribution Width 21 % (10.5-15); White Blood Count 12.6 10^3/ul (3.5-10.8)
[2017-02-23 06:03] LABS: Comments Flag Yes
--- NOTE | 2017-02-23 09:05 | PN ---
Subjective Date of Service: 02/23/17 Interval History: This is a 21 yo female with h/o IVDA who presented with an abscess and cellulitis over her R wrist after a "spider bite" 02/21. She underwent I&D in the ER and started on vancomycin. She has been afebrile overnight. Patient reports improvement in her erythema which had streaked to her shoulder at time of admission. Pain is tolerable denies any additional complaints. She was questioned about signs of bleeding due to noted anemia, she denies any and states that she has not had a menstrual period since delivering her child in August. She states she has undergone US of the pelvis for w/u of amenorrhea which she was told was normal. She denies additional signs of bleeding. Objective Active Medications: Acetaminophen (Tylenol Tab*) 650 mg PO Q6H PRN PRN Reason: FEVER/PAIN Last Admin: 02/23/17 03:13 Dose: 650 mg Albuterol (Ventolin 2.5 Mg/3 Ml Neb.Eunice*) 2.5 mg INH Q2H PRN PRN Reason: SOB/WHEEZING Device (Nicotine Mouth Piece*) 1 each INH .USE WITH NICOTROL PRN PRN Reason: CRAVING Docusate Sodium (Colace Cap*) 200 mg PO BID [facility] Vancomycin HCl 750 mg/ Sodium (Chloride) 250 mls @ 166.667 mls/hr IVPB Q8H [facility] Last Admin: 02/23/17 03:23 Dose: 166.667 mls/hr Melatonin (Melatonin (Nf)) 3 mg PO BEDTIME PRN; Protocol PRN Reason: Sleep Nicotine (Nicotine Inhaler*) 10 mg INH Q2H PRN PRN Reason: CRAVING Omeprazole (Prilosec Cap*) 20 mg PO DAILY@0600 [facility] Last Admin: 02/23/17 05:06 Dose: Not Given Ondansetron HCl (Zofran Inj*) 4 mg IV Q6H PRN PRN Reason: NAUSEA Pharmacy Consult (Vancomycin Per Pharmacy*) 1 note FOLLOW UP .VANC PER PHARMACY [facility] Pharmacy Profile Note (Vancomycin Trough Check) 1 note FOLLOW UP 1929 ONE Stop: 02/23/17 19:31 Tramadol HCl (Ultram*) 50 mg PO Q6H PRN PRN Reason: PAIN Vital Signs: Temp Pulse Resp BP Pulse Ox 98.2 F 63 19 91/54 99 02/23/17 07:16 02/23/17 07:16 02/23/17 07:16 02/23/17 07:16 02/23/17 07:16 Oxygen Devices in Use Now: None Appearance: Mildly ill appearing young female in NAD Respiratory: Symmetrical Chest Expansion and Respiratory Effort, Clear to Auscultation Cardiovascular: NL Sounds; No Murmurs; No JVD, RRR Extremities: - - RUE swelling at the hand and forearm, R wrist wrapped in an BOB wrap. Skin: No Rash or Ulcers Neurological: Alert and Oriented x 3 Result Diagrams: 02/23/17 05:34 02/22/17 18:22 Additional Lab and Data: . Assess/Plan/Problems-Billing Assessment: This is a 21 yo female with a h/o IVDA who presented with c/o R wrist abscess and cellulitis. Admitted for IV abx treatment. - Patient Problems (1) Abscess or cellulitis of wrist Comment: With associated lymphangitis of RUE Noted improvement with IV Vanco Blood cultures pending, concern for endocarditis due h/o IVDA, but no murmur on exam (2) IV drug abuse Comment: Patient reports that she has been clean x 1yr Opiates and amphetamines on tox screen with Percocet and Adderall on home medication list (3) Anemia Comment: Marked microcytic anemia Pending iron, B12 and folate studies, but assume it is an iron deficiency anemia She denies signs of bleeding including any menstrual bleeding BHCG neg (4) Anxiety Comment: Controlled at this time (5) Full code status (6) DVT prophylaxis Comment: Low risk SCDs Status and Disposition: Observation. Waiting for blood culture results which should be reported this evening, if neg dc in am.
[2017-02-23 09:28] LABS: Total Iron Binding Capacity 259 mcg/dL (250-450); Transferrin 185 mg/dL (203-362)
[2017-02-23 09:36] LABS: Iron < 15 ug/dL (50-212)
[2017-02-23 09:49] LABS: Ferritin 21.2 ng/mL (11-307)
[2017-02-23 09:53] LABS: Folate 5.06 ng/mL (>3.99)
[2017-02-23 09:54] LABS: Vitamin B12 344 pg/mL (180-914)
[2017-02-23] MEDS: Docusate CAP* 100 MG PO SCH ×2 (10:02→19:41)
[2017-02-23] MEDS: traMADol TAB* 50 MG PO PRN ×2 (13:17→19:42)
[2017-02-23] MEDS ORDERED: Vancomycin Trough Check NOTE FOLLOW UP ONE (19:30)
[2017-02-24] MEDS: Vancomycin(*) 1,000 MG in NS 0.9% 250 ML* 250 ML IVPB SCH ×2 (02:01→09:44)
[2017-02-24 03:25] VITALS: BP 101/59
[2017-02-24] MEDS: Omeprazole CAP* 20 MG PO SCH (06:15)
[2017-02-24] MEDS: traMADol TAB* 50 MG PO PRN (06:35)
[2017-02-24] MEDS: Acetaminophen TAB* 325 MG PO PRN (06:37)
[2017-02-24] MEDS: Docusate CAP* 100 MG PO SCH (09:58)
[2017-02-24 10:00] LABS: BUN/Creatinine Ratio 25.7 (8-20); Calcium 9.4 mg/dL (8.6-10.3); EGFR African American 133.4 (>60); EGFR Non-African American 103.7 (>60); Potassium 4.2 mmol/L (3.5-5.0)
[2017-02-24 10:18] LABS: Hematocrit 29 % (35-47); Hemoglobin 9.1 g/dl (12.0-16.0); Mean Corpuscular HGB Conc 31 g/dl (31-36); Mean Corpuscular Hemoglobin 21 pg (27-31); Mean Platelet Volume 8 um3 (7.4-10.4); Red Blood Count 4.27 10^6/ul (4.0-5.4); Red Cell Distribution Width 21 % (10.5-15); White Blood Count 9.1 10^3/ul (3.5-10.8)
[2017-02-24 10:21] LABS: Comments Flag Yes
[2017-02-24 10:22] LABS: Mean Corpuscular Volume 68 fL (80-97)
[2017-02-24] MEDS ORDERED: oxyCODONE/Acetamin 5/325 MG* TAB PO PRN (10:30)
--- NOTE | 2017-02-25 02:49 | DS ---
CC: MELANY Fields * DISCHARGE SUMMARY: DATE OF ADMISSION: 02/22/17 DATE OF DISCHARGE: 02/24/17 PRIMARY CARE PROVIDER: MELANY Car DISCHARGING PROVIDER: MELANY Santiago SUPERVISING PHYSICIAN: Felipe Angeles MD * (DICTATED BY MELANY SANTIAGO) PRIMARY DISCHARGE DIAGNOSES: 1. Abscess with associated cellulitis and lymphangitis of the right upper extremity without signs of severe sepsis or septicemia. 2. History of IV drug abuse, reportedly in remission. 3. Microcytic anemia, which appears to be iron deficiency related. SECONDARY DISCHARGE DIAGNOSIS: Anxiety. DISCHARGE MEDICATIONS: 1. Adderall 1 tablet p.o. daily. 2. Bactrim DS 1 tablet p.o. twice daily x7 days. 3. Oxycodone/acetaminophen 10/325 one tablet p.o. q.6 hours as needed for pain. Medication changes: 1. Bactrim x7 days. HOSPITAL IMAGIN. Chest x-ray shows no acute process. 2. Soft tissue ultrasound of the right wrist demonstrates findings consistent with the subcutaneous abscess. HOSPITAL COURSE: This is a 21-year-old female with history of anxiety and IV drug abuse, reportedly clean for the last year, who presented with concerns for "spider bite," which she first noted 02/21/17. The area of concern was located on her right wrist and the area of redness rapidly spread up her arm and across her chest. She was evaluated in the emergency department, which demonstrated a moderate leukocytosis with white blood cell count of 16,500. She was also noted to have a microcytic anemia, normal platelet counts at that time. Comprehensive metabolic panel is unremarkable. Moderate CRP elevation at 64 and beta-hCG was noted to be negative. Lactic acid was also normal. Urine toxicology screen was positive for both opiate and amphetamines, which are on her home medications in the form of Percocet and Adderall. The patient had what appeared to be a large abscess over her right wrist, which was successfully incised and drained in the emergency department and packed with iodoform gauze. Due to the extent of the erythema and concern for lymphangitis with streaking up her arm, she was referred for inpatient admission. Given her history of IV drug abuse, there is high suspicion for endocarditis, but blood cultures were negative, and she did not have a murmur on exam or other stigmata associated with endocarditis. The patient was empirically treated treated with IV vancomycin with good response. She remained afebrile throughout her hospital stay and white blood cell count returned to normal prior to discharge. The patient was noted to be anemic. Hemoglobin varied between 7 and 9 g/dL, but she was markedly microcytic. Iron, folate, and B12 studies were completed, which demonstrated a severe iron deficiency. The patient was questioned about her menstrual patterns, which she states that she has delivered a baby in August of 2016 and has not had a menstrual period since. She does not breast feed. Her beta-hCG was negative here. She states that she has undergone workup for amenorrhea with her PCP. No other signs of bleeding. Unsure of what her baseline hemoglobin is. DISPOSITION AND FOLLOWUP PLAN: The patient is being discharged to home. She still has some packing in place in the abscess pocket over her right wrist. She is instructed to remove the remainder of the packing in 24 to 48 hours. She is given a prescription for 7 days worth of Bactrim and follow up recommended with primary care provider by the end of the week. The patient received wound care directions. Regarding her anemia, suggested she started on iron supplementation and consider outpatient Hematology consult. MELANY SANTIAGO [id number]/[facility] #: [id number] MTDJairo
[2017-02-25] MEDS ORDERED: Vancomycin Trough Check NOTE FOLLOW UP ONE (09:30)
== END 2017-02-24 13:30 | disposition home or self-care (01) | DRG 603 ==
LOC: ED 17:23 → MED 23:26 → OBSVTOIN 02-23 09:00
PROVIDERS: ADMIT Hospitalist; ATTEND Hospitalist
PROC: 0H9BXZZ Drainage of Right Upper Arm Skin, External Approach (ICD-10-PCS; principal; 2017-02-23)
DX: L02.413 Cutaneous abscess of right upper limb (principal); D50.9 Iron deficiency anemia, unspecified; F11.21 Opioid dependence, in remission; F19.21 Other psychoactive substance dependence, in remission; F17.210 Nicotine dependence, cigarettes, uncomplicated; F43.10 Post-traumatic stress disorder, unspecified; L03.113 Cellulitis of right upper limb; Z88.0 Allergy status to penicillin; Z88.3 Allergy status to other anti-infective agents; Z91.040 Latex allergy status
CPT/HCPCS: 36415; 71010; 80048; 80053; 80202; 80307; 81003; 81015; 82550; 82607; 82728; 82746; 83540; 83550; 83605; 84484; 84702; 85025; 85060; 85610; 85652; 85730; 86140; 87040; 87086; 93005; 99406; A9270-GY; J1200; J2270; J2405; J3370

== ENCOUNTER 2017-12-03 07:01 | Inpatient (IN) | payer OTHER, MEDICAID ==
[2017-12-03] MEDS ORDERED: Magnesium Hydroxide LIQ* 30 ML UDC PO PRN (12:40)
[2017-12-03] MEDS ORDERED: Senna TAB PO PRN (12:40)
[2017-12-03] MEDS ORDERED: Cyclobenzaprine TAB* 10 MG PO PRN (12:47)
[2017-12-03] MEDS: oxyCODONE TAB* 5 MG TAB PO PRN (13:18)
[2017-12-03] MEDS: Acetaminophen TAB* 325 MG PO PRN (14:49)
[2017-12-03] MEDS: Enoxaparin(*) 40 MG/0.4 ML SYR SUBCUT SCH (18:43)
[2017-12-03] MEDS: Amoxicillin/Clavulanate TAB* 875 MG PO SCH (21:21)
[2017-12-03] MEDS: oxyCODONE SR TAB(*) 10 MG TAB.SR PO SCH (21:21)
[2017-12-03] MEDS: Docusate CAP* 100 MG PO SCH (21:32)
[2017-12-03] MEDS: Bacitracin OINTMENT* 0.5% 0.5 oz TUBE TOPICAL SCH (21:58)
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
[2017-12-04] MEDS: oxyCODONE TAB* 5 MG TAB PO PRN ×3 (02:06→19:40)
[2017-12-04 06:51] LABS: Hematocrit 30 % (35-47); Hemoglobin 10.3 g/dl (12.0-16.0); Mean Corpuscular HGB Conc 34 g/dl (31-36); Mean Corpuscular Hemoglobin 28 pg (27-31); Mean Corpuscular Volume 80 fL (80-97); Mean Platelet Volume 7.5 um3 (7.4-10.4); Platelet Count 659 10^3/ul (150-450); Red Blood Count 3.76 10^6/ul (4.00-5.40); Red Cell Distribution Width 19 % (10.5-15); White Blood Count 21.7 10^3/ul (3.5-10.8)
[2017-12-04] MEDS ORDERED: Collagenase 250 MG/GM OINT* 30 GM TOPICAL SCH (09:00)
[2017-12-04] MEDS: Docusate CAP* 100 MG PO SCH ×2 (09:58→21:52)
[2017-12-04] MEDS: Amoxicillin/Clavulanate TAB* 875 MG PO SCH ×2 (09:58→21:53)
[2017-12-04] MEDS: oxyCODONE SR TAB(*) 10 MG TAB.SR PO SCH ×2 (09:58→21:52)
[2017-12-04 10:10] LABS: ABS Basophils 0.1 10^3/ul (0-0.2); ABS Eosinophils 0.9 10^3/ul (0-0.6); ABS Lymphocytes 1.5 10^3/ul (1.0-4.8); ABS Monocytes 1.6 10^3/ul (0-0.8); ABS Neutrophils 17.5 10^3/ul (1.5-7.7); ABS Nucleated RBC 0 10^3/ul
[2017-12-04 10:11] LABS: Eosinophil % 4.3 % (0-6); Lymphocyte % 7.1 % (25-47); Nucleated Red Blood Cells % 0
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
[2017-12-04] MEDS: Acetaminophen TAB* 325 MG PO PRN (15:34)
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
[2017-12-04] MEDS: Enoxaparin(*) 40 MG/0.4 ML SYR SUBCUT SCH (17:40)
[2017-12-04 17:47] LABS: Urine Appearance Cloudy; Urine Blood Negative (Negative); Urine Color Yellow; Urine Ketones Negative (Negative); Urine Protein Negative (Negative); Urine Specific Gravity 1.027 (1.010-1.030); Urine Urobilinogen Negative (Negative)
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
[2017-12-05 06:35] LABS: ABS Basophils 0.1 10^3/ul (0-0.2); ABS Eosinophils 0.8 10^3/ul (0-0.6); ABS Lymphocytes 1.1 10^3/ul (1.0-4.8); ABS Monocytes 1.3 10^3/ul (0-0.8); ABS Nucleated RBC 0 10^3/ul; Eosinophil % 4.4 % (0-6); Hematocrit 30 % (35-47); Hemoglobin 10.4 g/dl (12.0-16.0); Lymphocyte % 5.9 % (25-47); Mean Corpuscular HGB Conc 34 g/dl (31-36); Mean Corpuscular Hemoglobin 27 pg (27-31); Mean Corpuscular Volume 80 fL (80-97); Mean Platelet Volume 7.5 um3 (7.4-10.4); Nucleated Red Blood Cells % 0; Platelet Count 695 10^3/ul (150-450); Red Blood Count 3.79 10^6/ul (4.00-5.40); Red Cell Distribution Width 19 % (10.5-15); White Blood Count 19.4 10^3/ul (3.5-10.8)
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
[2017-12-05 06:52] LABS: EGFR Non-African American 151.6 (>60)
[2017-12-05] MEDS: Bacitracin OINTMENT* 0.5% 0.5 oz TUBE TOPICAL SCH ×2 (08:53→09:12)
[2017-12-05] MEDS: oxyCODONE SR TAB(*) 10 MG TAB.SR PO SCH ×2 (08:53→20:53)
[2017-12-05] MEDS: Amoxicillin/Clavulanate TAB* 875 MG PO SCH ×2 (08:54→20:53)
[2017-12-05] MEDS: Docusate CAP* 100 MG PO SCH ×3 (08:54→20:53)
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
[2017-12-05] MEDS: oxyCODONE TAB* 5 MG TAB PO PRN ×3 (11:29→20:52)
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
[2017-12-05] MEDS: Acetaminophen TAB* 325 MG PO PRN (16:52)
[2017-12-05] MEDS: Enoxaparin(*) 40 MG/0.4 ML SYR SUBCUT SCH (16:53)
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
[2017-12-06] MEDS: oxyCODONE TAB* 5 MG TAB PO PRN ×2 (05:51→15:18)
[2017-12-06] MEDS: Acetaminophen TAB* 325 MG PO PRN ×2 (06:45→15:57)
[2017-12-06] MEDS: Methocarbamol TAB* 500 MG PO PRN ×2 (06:45→19:36)
[2017-12-06] MEDS: oxyCODONE SR TAB(*) 10 MG TAB.SR PO SCH ×2 (10:20→21:26)
[2017-12-06] MEDS: Docusate CAP* 100 MG PO SCH ×2 (10:20→21:26)
[2017-12-06] MEDS: Amoxicillin/Clavulanate TAB* 875 MG PO SCH ×2 (10:20→21:26)
[2017-12-06] MEDS: Bacitracin OINTMENT* 0.5% 0.5 oz TUBE TOPICAL SCH (16:10)
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
[2017-12-06] MEDS: Enoxaparin(*) 40 MG/0.4 ML SYR SUBCUT SCH (18:20)
[2017-12-07] MEDS: Acetaminophen TAB* 325 MG PO PRN ×4 (00:16→23:45)
[2017-12-07] MEDS: oxyCODONE TAB* 5 MG TAB PO PRN ×2 (05:08→13:59)
[2017-12-07] MEDS ORDERED: Sertraline* 25 MG TAB PO SCH (09:00)
[2017-12-07] MEDS: Amoxicillin/Clavulanate TAB* 875 MG PO SCH ×2 (09:08→19:56)
[2017-12-07] MEDS: oxyCODONE SR TAB(*) 10 MG TAB.SR PO SCH ×2 (09:08→19:57)
[2017-12-07] MEDS: Docusate CAP* 100 MG PO SCH ×2 (09:13→20:00)
[2017-12-07] MEDS: Methocarbamol TAB* 500 MG PO PRN ×2 (11:01→21:47)
[2017-12-07] MEDS: Bacitracin OINTMENT* 0.5% 0.5 oz TUBE TOPICAL SCH (13:55)
--- NOTE | 2017-12-07 17:39 | PN ---
Progress Note Date of Service: 12/07/17 Note: UDSTY LEO was visited. Nursing notes read and reviewed. Patient states she is allergic to Zoloft so refused it. She thinks she may be allergic to Prozac. I have restarted her on Buspar. I will ask psych to see. Complains of left hearing loss. She has refused to wear [place] collar. Current Medications: Active Medications Generic Name Dose Route Start Last Admin Trade Name Freq PRN Reason Stop Dose Admin Acetaminophen 650 mg 12/03/17 12:40 12/07/17 09:08 Tylenol Tab* PO 650 mg Q6H PRN Administration FEVER/PAIN Amoxicillin/Clavulanate Potassium 875 mg 12/03/17 21:00 12/07/17 09:08 Augmentin Tab* PO 12/08/17 23:59 875 mg BID FARRAH Administration Bacitracin 1 applic 12/05/17 09:00 12/07/17 13:55 Bacitracin Ointment* TOPICAL 1 applic DAILY FARRAH Administration Buspirone HCl 10 mg 12/07/17 21:00 Buspar Tab* PO BID FARRAH Docusate Sodium 100 mg 12/03/17 21:00 12/07/17 09:13 Colace Cap* PO 100 mg BID FARRAH Administration Enoxaparin Sodium 40 mg 12/03/17 18:00 12/06/17 18:20 Lovenox(*) SUBCUT 40 mg Q24H FARRAH Administration Magnesium Hydroxide 30 ml 12/03/17 12:40 Milk Of Magnesia Liq* PO Q6H PRN CONSTIPATION Methocarbamol 750 mg 12/03/17 18:19 12/07/17 11:01 Robaxin Tab* PO 750 mg TID PRN Administration SPASMS Oxycodone HCl 5 mg 12/03/17 12:46 12/07/17 13:59 Roxycodone Tab* PO 5 mg Q4H PRN Administration PAIN - MODERATE TO SEVERE Oxycodone HCl 10 mg 12/03/17 21:00 12/07/17 09:08 Oxycontin(*) PO 10 mg Q12HR FARRAH Administration Senna 2 tab 12/03/17 12:40 Senokot Tab* PO BEDTIME PRN CONSTIPATION Vital Signs: Vital Signs Temp Pulse Resp BP Pulse Ox 98.8 F 130 18 117/86 100 12/07/17 15:37 12/07/17 15:37 12/07/17 15:43 12/07/17 15:37 12/07/17 15:37 Exam: HEENT: Ecchymoses LUNGS: Clear HEART: Tachy, S1, S2 ABDOMEN: Soft EXTREMITIES: Right arm with significant skin loss NEUROLOGIC: Able to move lower extremities without difficulty Assessment/Plan: 1. Multiple trauma with TBI, Splenic laceration: PT/OT 2. Analgesia: OxyContin, Oxycodone 3. Elevated WBC: Wound culture, blood culture, U/A. ID consult. All cultures negative so far. Will check CBC Friday 4. Right arm wounds: Will need Plastics consult. Continue Augmentin. Appreciate Surgery followup 5. Amenorrhea: Stable for now. Will need [employer] consult as outpatient 6. DVT Prophylaxis: Lovenox 7. Depression: will ask psychiatry to see. Will start Buspar 8. Hearing Loss: Will ask ENT to see 12/07/17 17:40 12/07/17 17:41
[2017-12-07] MEDS: Enoxaparin(*) 40 MG/0.4 ML SYR SUBCUT SCH (18:51)
[2017-12-07] MEDS: busPIRone TAB* 10 MG PO SCH (19:56)
[2017-12-08] MEDS: oxyCODONE TAB* 5 MG TAB PO PRN ×3 (01:20→17:20)
[2017-12-08 06:06] LABS: ABS Basophils 0.1 10^3/ul (0-0.2); ABS Eosinophils 0.9 10^3/ul (0-0.6); ABS Lymphocytes 1.5 10^3/ul (1.0-4.8); ABS Monocytes 1.1 10^3/ul (0-0.8); ABS Neutrophils 8.7 10^3/ul (1.5-7.7); ABS Nucleated RBC 0 10^3/ul; Eosinophil % 7.3 % (0-6); Hematocrit 28 % (35-47); Hemoglobin 9.1 g/dl (12.0-16.0); Lymphocyte % 12.4 % (25-47); Mean Corpuscular HGB Conc 33 g/dl (31-36); Mean Corpuscular Hemoglobin 27 pg (27-31); Mean Corpuscular Volume 81 fL (80-97); Nucleated Red Blood Cells % 0; Platelet Count 702 10^3/ul (150-450); Red Cell Distribution Width 18 % (10.5-15); White Blood Count 12.4 10^3/ul (3.5-10.8)
[2017-12-08] MEDS: Methocarbamol TAB* 500 MG PO PRN ×2 (07:35→21:10)
[2017-12-08] MEDS: Amoxicillin/Clavulanate TAB* 875 MG PO SCH ×2 (09:06→21:10)
[2017-12-08] MEDS: busPIRone TAB* 10 MG PO SCH ×3 (09:06→21:10)
[2017-12-08] MEDS: oxyCODONE SR TAB(*) 10 MG TAB.SR PO SCH ×2 (09:06→21:10)
[2017-12-08] MEDS: Docusate CAP* 100 MG PO SCH ×2 (09:06→21:25)
[2017-12-08] MEDS: Bacitracin OINTMENT* 0.5% 0.5 oz TUBE TOPICAL SCH (09:22)
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
[2017-12-08] MEDS: Enoxaparin(*) 40 MG/0.4 ML SYR SUBCUT SCH (17:24)
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
[2017-12-08] MEDS: Acetaminophen TAB* 325 MG PO PRN (22:04)
[2017-12-09] MEDS: oxyCODONE TAB* 5 MG TAB PO PRN ×3 (05:12→16:49)
[2017-12-09] MEDS: Methocarbamol TAB* 500 MG PO PRN ×3 (05:19→16:49)
[2017-12-09] MEDS: oxyCODONE SR TAB(*) 10 MG TAB.SR PO SCH ×2 (09:51→22:28)
[2017-12-09] MEDS: busPIRone TAB* 10 MG PO SCH ×3 (09:52→22:28)
[2017-12-09] MEDS: Docusate CAP* 100 MG PO SCH ×2 (09:53→22:44)
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
[2017-12-09] MEDS: Bacitracin OINTMENT* 0.5% 0.5 oz TUBE TOPICAL SCH (13:12)
[2017-12-09] MEDS: Enoxaparin(*) 40 MG/0.4 ML SYR SUBCUT SCH (16:51)
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
[2017-12-09] MEDS: Acetaminophen TAB* 325 MG PO PRN (19:08)
[2017-12-10] MEDS: Methocarbamol TAB* 500 MG PO PRN ×2 (02:58→09:51)
[2017-12-10] MEDS: oxyCODONE TAB* 5 MG TAB PO PRN ×3 (02:59→17:55)
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
[2017-12-10] MEDS: Acetaminophen TAB* 325 MG PO PRN ×2 (06:32→17:55)
[2017-12-10] MEDS: busPIRone TAB* 10 MG PO SCH ×3 (07:36→19:56)
[2017-12-10] MEDS: Docusate CAP* 100 MG PO SCH ×2 (07:36→19:52)
[2017-12-10] MEDS: oxyCODONE SR TAB(*) 10 MG TAB.SR PO SCH ×2 (07:36→19:56)
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
[2017-12-10] MEDS: Enoxaparin(*) 40 MG/0.4 ML SYR SUBCUT SCH (17:57)
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
[2017-12-10] MEDS: Famotidine TAB* 20 MG PO SCH (19:56)
[2017-12-10] MEDS: Bacitracin OINTMENT* 0.5% 0.5 oz TUBE TOPICAL SCH (22:08)
[2017-12-11] MEDS: Methocarbamol TAB* 500 MG PO PRN ×2 (03:06→14:38)
[2017-12-11] MEDS ORDERED: diPHENhydraMINE PO* 25 MG PO ONE (04:00)
[2017-12-11] MEDS: Famotidine TAB* 20 MG PO SCH ×3 (04:35→22:30)
[2017-12-11] MEDS: oxyCODONE SR TAB(*) 10 MG TAB.SR PO SCH ×3 (04:35→22:30)
[2017-12-11] MEDS: busPIRone TAB* 10 MG PO SCH ×4 (04:35→22:29)
[2017-12-11 05:31] LABS: EGFR Non-African American 130.3 (>60)
--- NOTE | 2017-12-11 10:02 | CONS ---
CC: Dr. rFanco * CONSULTATION REPORT: DATE OF CONSULT: 12/11/17 HISTORY OF PRESENT ILLNESS: Ms. Astudillo was scheduled for debridement and split -thickness skin grafting of the open wounds on her right lateral arm this morning. The transport staff came to pick her up to transport her to same day surgery, but the patient refused to get out of bed. I was contacted by the operating room and informed that the patient was "refusing surgery." I came in this morning and spoke with the nursing staff and attempted to discuss with the patient. When I entered the patient's room, the patient appeared to be sleeping. I tried to wake her up, but was unsuccessful. I had her nurse come in and try to wake her up as well. The patient would move and took her arm across her eyes, but refused to speak or open her eyes. Nursing staff reports that this is frequent behavior for this patient. I called Dr. Franco and discussed the situation with him. I asked him if he feels that the patient is mentally competent to make medical decisions and he states that he does feel that she is competent, and furthermore states that she was evaluated by Psychiatry as well. As I stated in my original consultation, and as I discussed with the patient and with Dr. Franco, the debridement and the split-thickness skin grafting of the open wounds on the right arm is semi-elective, and not an emergency, by any means. The wounds are clean and granulating and there are no signs of infection noted. The wounds will likely eventually go on to heal by secondary intention. Skin grafting could speed this process along, but is not necessary. For this reason, I told Dr. Franco that I was signing off on the case. If he or the patient decide later that she could benefit from further plastic surgery care, and it is felt to be urgent, he can reconsult me. If not urgent and she wants to revisit the issue of skin grafting the wound, then I would suggest that she return to [place] to consult with the plastic surgeon that she previously saw there. [id number]/[facility] #: [id number] CARMEN
[2017-12-11] MEDS: oxyCODONE TAB* 5 MG TAB PO PRN ×2 (11:08→17:59)
[2017-12-11] MEDS: Docusate CAP* 100 MG PO SCH ×2 (11:27→22:30)
[2017-12-11] MEDS: Bacitracin OINTMENT* 0.5% 0.5 oz TUBE TOPICAL SCH (13:59)
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
[2017-12-11] MEDS: Enoxaparin(*) 40 MG/0.4 ML SYR SUBCUT SCH (17:38)
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
[2017-12-12] MEDS: Methocarbamol TAB* 500 MG PO PRN ×2 (04:23→13:50)
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
[2017-12-12 07:17] LABS: ABS Basophils 0.1 10^3/ul (0-0.2); ABS Eosinophils 0.9 10^3/ul (0-0.6); ABS Lymphocytes 1.2 10^3/ul (1.0-4.8); ABS Monocytes 0.8 10^3/ul (0-0.8); ABS Neutrophils 7.7 10^3/ul (1.5-7.7); ABS Nucleated RBC 0 10^3/ul; Eosinophil % 8.1 % (0-6); Hematocrit 30 % (35-47); Lymphocyte % 11.5 % (25-47); Mean Corpuscular HGB Conc 33 g/dl (31-36); Mean Corpuscular Hemoglobin 27 pg (27-31); Mean Corpuscular Volume 81 fL (80-97); Mean Platelet Volume 7.1 um3 (7.4-10.4); Nucleated Red Blood Cells % 0; Platelet Count 777 10^3/ul (150-450); Red Blood Count 3.72 10^6/ul (4.00-5.40); Red Cell Distribution Width 18 % (10.5-15); White Blood Count 10.7 10^3/ul (3.5-10.8)
[2017-12-12] MEDS: Famotidine TAB* 20 MG PO SCH ×2 (07:29→20:38)
[2017-12-12] MEDS: oxyCODONE SR TAB(*) 10 MG TAB.SR PO SCH ×2 (07:29→20:37)
[2017-12-12] MEDS: busPIRone TAB* 10 MG PO SCH ×3 (07:29→20:38)
[2017-12-12] MEDS: Bacitracin OINTMENT* 0.5% 0.5 oz TUBE TOPICAL SCH (07:33)
[2017-12-12 07:39] LABS: EGFR Non-African American 151.6 (>60)
[2017-12-12] MEDS: Docusate CAP* 100 MG PO SCH ×2 (10:05→20:41)
[2017-12-12] MEDS: oxyCODONE TAB* 5 MG TAB PO PRN ×2 (12:41→20:38)
[2017-12-12] MEDS: Enoxaparin(*) 40 MG/0.4 ML SYR SUBCUT SCH (19:40)
[2017-12-13] MEDS: Methocarbamol TAB* 500 MG PO PRN ×2 (06:24→21:04)
[2017-12-13] MEDS: Docusate CAP* 100 MG PO SCH ×2 (08:09→20:58)
[2017-12-13] MEDS: oxyCODONE SR TAB(*) 10 MG TAB.SR PO SCH ×2 (08:12→21:04)
[2017-12-13] MEDS: Famotidine TAB* 20 MG PO SCH ×2 (08:13→21:05)
[2017-12-13] MEDS: busPIRone TAB* 10 MG PO SCH ×3 (08:13→21:05)
[2017-12-13] MEDS: Bacitracin OINTMENT* 0.5% 0.5 oz TUBE TOPICAL SCH (08:14)
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
[2017-12-13] MEDS: oxyCODONE TAB* 5 MG TAB PO PRN ×2 (13:04→17:16)
[2017-12-13] MEDS: Enoxaparin(*) 40 MG/0.4 ML SYR SUBCUT SCH (17:17)
[2017-12-14] MEDS: oxyCODONE TAB* 5 MG TAB PO PRN ×3 (02:30→19:51)
[2017-12-14] MEDS: oxyCODONE SR TAB(*) 10 MG TAB.SR PO SCH ×2 (09:00→21:37)
[2017-12-14] MEDS: Docusate CAP* 100 MG PO SCH ×2 (09:01→21:37)
[2017-12-14] MEDS: busPIRone TAB* 10 MG PO SCH ×3 (09:01→21:37)
[2017-12-14] MEDS: Famotidine TAB* 20 MG PO SCH ×2 (09:01→21:36)
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
[2017-12-14] MEDS ORDERED: diPHENhydraMINE PO* 25 MG PO PRN (12:21)
[2017-12-14] MEDS: Methocarbamol TAB* 500 MG PO PRN ×2 (15:09→19:51)
[2017-12-14] MEDS: diPHENhydraMINE LIQ* 12.5 MG/5 ML UDC PO PRN (15:12)
[2017-12-14] MEDS: Bacitracin OINTMENT* 0.5% 0.5 oz TUBE TOPICAL SCH (15:12)
[2017-12-14] MEDS: Enoxaparin(*) 40 MG/0.4 ML SYR SUBCUT SCH (18:24)
[2017-12-15] MEDS: diPHENhydraMINE LIQ* 12.5 MG/5 ML UDC PO PRN ×3 (05:48→20:17)
[2017-12-15] MEDS: Methocarbamol TAB* 500 MG PO PRN (05:48)
[2017-12-15] MEDS: oxyCODONE TAB* 5 MG TAB PO PRN ×3 (05:48→18:15)
[2017-12-15] MEDS: Famotidine TAB* 20 MG PO SCH ×2 (08:44→20:15)
[2017-12-15] MEDS: oxyCODONE SR TAB(*) 10 MG TAB.SR PO SCH ×2 (08:44→20:15)
[2017-12-15] MEDS: busPIRone TAB* 10 MG PO SCH ×3 (08:44→20:15)
[2017-12-15] MEDS: Docusate CAP* 100 MG PO SCH ×2 (08:45→20:03)
[2017-12-15] MEDS: Bacitracin OINTMENT* 0.5% 0.5 oz TUBE TOPICAL SCH (08:45)
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
[2017-12-15] MEDS: Enoxaparin(*) 40 MG/0.4 ML SYR SUBCUT SCH (18:18)
[2017-12-16] MEDS: Acetaminophen TAB* 325 MG PO PRN ×2 (03:10→14:37)
[2017-12-16] MEDS: busPIRone TAB* 10 MG PO SCH ×3 (08:14→20:52)
[2017-12-16] MEDS: Famotidine TAB* 20 MG PO SCH ×2 (08:14→20:52)
[2017-12-16] MEDS: oxyCODONE SR TAB(*) 10 MG TAB.SR PO SCH ×2 (08:14→20:52)
[2017-12-16] MEDS: Docusate CAP* 100 MG PO SCH ×2 (08:14→20:55)
[2017-12-16] MEDS: Bacitracin OINTMENT* 0.5% 0.5 oz TUBE TOPICAL SCH (08:14)
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
[2017-12-16] MEDS: oxyCODONE TAB* 5 MG TAB PO PRN (11:48)
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
[2017-12-16] MEDS: diPHENhydraMINE LIQ* 12.5 MG/5 ML UDC PO PRN ×2 (14:37→20:53)
[2017-12-16] MEDS: Methocarbamol TAB* 500 MG PO PRN (14:38)
[2017-12-16] MEDS: Enoxaparin(*) 40 MG/0.4 ML SYR SUBCUT SCH (19:29)
[2017-12-17] MEDS: Methocarbamol TAB* 500 MG PO PRN ×2 (06:01→13:06)
[2017-12-17] MEDS: oxyCODONE TAB* 5 MG TAB PO PRN ×3 (07:43→17:50)
[2017-12-17] MEDS: diPHENhydraMINE LIQ* 12.5 MG/5 ML UDC PO PRN (07:43)
[2017-12-17] MEDS: Bacitracin OINTMENT* 0.5% 0.5 oz TUBE TOPICAL SCH (09:40)
[2017-12-17] MEDS: Docusate CAP* 100 MG PO SCH (09:44)
[2017-12-17] MEDS: Famotidine TAB* 20 MG PO SCH ×2 (09:46→20:33)
[2017-12-17] MEDS: busPIRone TAB* 10 MG PO SCH ×3 (09:46→20:33)
[2017-12-17] MEDS: oxyCODONE SR TAB(*) 10 MG TAB.SR PO SCH (09:47)
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
[2017-12-17] MEDS ORDERED: diPHENhydraMINE PO* 25 MG PO PRN (11:22)
[2017-12-17] MEDS: Enoxaparin(*) 40 MG/0.4 ML SYR SUBCUT SCH (17:29)
[2017-12-17] MEDS ORDERED: diPHENhydraMINE LIQ* 12.5 MG/5 ML UDC PO PRN (18:00)
[2017-12-18] MEDS: Methocarbamol TAB* 500 MG PO PRN ×2 (00:44→09:47)
[2017-12-18] MEDS: oxyCODONE TAB* 5 MG TAB PO PRN ×4 (01:45→14:14)
[2017-12-18 06:35] VITALS: BP 124/89
[2017-12-18] MEDS: Famotidine TAB* 20 MG PO SCH (08:55)
[2017-12-18] MEDS: busPIRone TAB* 10 MG PO SCH ×2 (08:55→13:34)
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
[2017-12-18] MEDS: Bacitracin OINTMENT* 0.5% 0.5 oz TUBE TOPICAL SCH (10:15)
[2017-12-18] MEDS: Acetaminophen TAB* 325 MG PO PRN (12:04)
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
== END 2017-12-18 14:31 | disposition home or self-care (01) | DRG 860 ==
LOC: PMRU 12:31
PROVIDERS: ADMIT Physical Medicine & Rehabilitation; ATTEND Physical Medicine & Rehabilitation
PROC: F07Z5ZZ Bed Mobility Treatment (ICD-10-PCS; principal; 2017-12-03)
PROC: F07Z9ZZ Gait Training/Functional Ambulation Treatment (ICD-10-PCS; 2017-12-03)
PROC: F07Z8ZZ Transfer Training Treatment (ICD-10-PCS; 2017-12-03)
PROC: F08Z0ZZ Bathing/Showering Techniques Treatment (ICD-10-PCS; 2017-12-03)
PROC: F08Z1ZZ Dressing Techniques Treatment (ICD-10-PCS; 2017-12-03)
PROC: F08Z3ZZ Feeding/Eating Treatment (ICD-10-PCS; 2017-12-03)
PROC: 0JC Subcutaneous Tissue and Fascia, Extirpation (ICD-10-PCS; 2017-12-03)
PROC: 0JBG0ZZ Excision of Right Lower Arm Subcutaneous Tissue and Fascia, Open Approach (ICD-10-PCS; 2017-12-03)
DX: S06.359D Traumatic hemorrhage of left cerebrum with loss of consciousness of unspecified duration, subsequent encounter (principal); G93.49 Other encephalopathy; E87.1 Hypo-osmolality and hyponatremia; L03.113 Cellulitis of right upper limb; S42.101D Fracture of unspecified part of scapula, right shoulder, subsequent encounter for fracture with routine healing; V49.88XD Car occupant (driver) (passenger) injured in other specified transport accidents, subsequent encounter; S02.102 Fracture of base of skull, left side; R40.2412 Glasgow coma scale score 13-15, at arrival to emergency department; S22.019D Unspecified fracture of first thoracic vertebra, subsequent encounter for fracture with routine healing; S22.029D Unspecified fracture of second thoracic vertebra, subsequent encounter for fracture with routine healing; S22.039D Unspecified fracture of third thoracic vertebra, subsequent encounter for fracture with routine healing; S22.049D Unspecified fracture of fourth thoracic vertebra, subsequent encounter for fracture with routine healing; S22.059D Unspecified fracture of T5-T6 vertebra, subsequent encounter for fracture with routine healing; S22.069D Unspecified fracture of T7-T8 vertebra, subsequent encounter for fracture with routine healing; S22.079D Unspecified fracture of T9-T10 vertebra, subsequent encounter for fracture with routine healing; S22.089D Unspecified fracture of T11-T12 vertebra, subsequent encounter for fracture with routine healing; S32.029D Unspecified fracture of second lumbar vertebra, subsequent encounter for fracture with routine healing; S32.039D Unspecified fracture of third lumbar vertebra, subsequent encounter for fracture with routine healing; S32.049D Unspecified fracture of fourth lumbar vertebra, subsequent encounter for fracture with routine healing; S12.600D Unspecified displaced fracture of seventh cervical vertebra, subsequent encounter for fracture with routine healing; S22.41XD Multiple fractures of ribs, right side, subsequent encounter for fracture with routine healing; S41.12 Laceration with foreign body of upper arm; F11.21 Opioid dependence, in remission; F43.10 Post-traumatic stress disorder, unspecified; F90.9 Attention-deficit hyperactivity disorder, unspecified type; F32.9 Major depressive disorder, single episode, unspecified; B96.89 Other specified bacterial agents as the cause of diseases classified elsewhere; N91.2 Amenorrhea, unspecified; R10.9 Unspecified abdominal pain; H91.90 Unspecified hearing loss, unspecified ear; F41.1 Generalized anxiety disorder; F17.210 Nicotine dependence, cigarettes, uncomplicated; Z88.8 Allergy status to other drugs, medicaments and biological substances; Z81.8 Family history of other mental and behavioral disorders; Z88.1 Allergy status to other antibiotic agents; Z91.011 Allergy to milk products; Z79.899 Other long term (current) drug therapy; Z88.0 Allergy status to penicillin; Z91.048 Other nonmedicinal substance allergy status
CPT/HCPCS: 36415; 74019; 80053; 81003; 81015; 85025; 87040; 87070; 87073; 87077; 87086; 87186; 87205; 87641; 95816; A9270-GY; J1650